=== PATIENT | female | born 1970 | race Caucasian/White ===

== ENCOUNTER 2020-04-23 00:36 | Outpatient (CLI) | payer BC, SELFPAY ==
[2020-04-23 19:18] LABS: SARS-CoV-2 RNA PCR Negative
== END 2020-04-23 00:37 | disposition home or self-care (01) ==
LOC: ANHCOVIDDT 00:36
PROVIDERS: Family Provider Family Medicine; PCP Internal Medicine; Visit Provider Otolaryngology
DX: Z01.812 Encounter for preprocedural laboratory examination (principal); Z20.822 Contact with and (suspected) exposure to COVID-19
CPT/HCPCS: C9803; U0003; U0005

== ENCOUNTER 2020-04-26 01:05 | Day surgery (SDC) | payer BC, SELFPAY ==
[2020-04-22 17:11] VITALS: BMI 28.3
--- NOTE | 2020-04-23 15:49 | PM.IMHP ---
H&P: HPI History of Present Illness Date/Time: 04/23/20 15:49 Chief Complaint: Left eustachian tube dysfunction, COME Narrative: Amber Cordova is a 49 year old female Who presents for planned surgical procedure. She reports no new symptoms and no new pertinent changes in her medical history. Review of Systems Constitutional: Constitutional: Denies fatigue, Denies fever(s) and Denies lethargy Eyes: Eyes: Denies blurry vision and Denies change in vision ENT: Reports as per HPI Cardiovascular: Cardiovascular: Denies chest pain Respiratory: Respiratory: Denies cough Endocrine: Endocrine: Denies fatigue Hematologic/Lymphatic: Hematologic/Lymphatic: Denies easy bleeding, Denies easy bruising and Denies lymphadenopathy Allergic/Immunologic: Allergic/Immunologic: Denies seasonal rhinorrhea [facility] Family History Family History (Updated 11/16/13 @ 07:13 by DOCTOR UNKNOWN) Grandparent Cerebrovascular accident Father Family history of heart disease in male family member before age 55 Social History Social History (Updated 03/26/20 @ 15:33 by Ellen Cooney [facility]) Smoking packs per day: 1 Smoking cigarettes per day: 20.0 Years smoked: 20 Smoking pack-years: 20.00 Smoking status: Former smoker Tobacco type: cigarettes Smoking end date: 04/22/04 Alcohol intake: current Drinks per week: 2 Substance use: never Substance use type: does not use Spiritual care concerns: No Meds Home Medications and Allergies Home Medications Medication Instructions Recorded Confirmed Type cholecalciferol (vitamin D3) 10 100 mcg PO DAILY 03/26/20 04/22/20 History mcg (400 unit) capsule fluticasone propionate 50 1 - 2 spray INTRANASAL BID #15.8 ml 03/26/20 04/22/20 Rx mcg/actuation nasal spray,suspension diphenhydramine-acetaminophen 2 tablet PO HS PRN 04/22/20 04/22/20 History [Tylenol PM Extra Strength] lubiprostone [Amitiza] 24 mcg PO DAILY 04/22/20 04/22/20 History mupirocin 1 applic TOPICAL BID PRN 04/22/20 04/22/20 History azelastine 137 mcg (0.1 %) nasal 1 spray INTRANASAL Q12H #30 ml 04/23/20 Rx spray aerosol Allergies Allergy/AdvReac Type Severity Reaction Status Date / Time morphine AdvReac Nausea and Verified 04/22/20 17:40 Vomiting Exam Const: General: cooperative, healthy appearing, comfortable, well developed and alert HENMT: Head: normal to inspection, normocephalic and atraumatic Ears: hearing grossly normal bilaterally, external ears normal, TM normal on the right, left TM abnormal ( Middle ear effusion present) and EAC's normal General nose exam: Normal external nose present, Normal nares present, No nasal polyps present, Normal nasal mucous membranes and turbinates present and Normal septum present Face and sinus: normal facial exam Mouth: Yes Normal oral and palatal mucosa present, Yes lip normal, Yes tongue normal, Yes oropharynx normal and Yes moist mucous membranes Teeth and gingiva: dentition normal and gingiva normal Throat: posterior oropharynx normal, tonsils normal and uvula midline Eyes: General: appearance normal, both eyes and all related structures Periorbital: periorbital findings normal Eyelids: eyelids normal Conjunctivae: conjunctivae normal Sclera: sclerae normal Neck: Neck: normal visual inspection, full ROM and no lymphadenopathy Thyroid: thyroid normal Lymphatic: no lymphadenopathy noted Resp: Effort & Inspection: normal respiratory effort and able to speak in complete sentences Cardio: Jugular venous distension: no JVD Neuro: Cranial nerves: Yes CN's II-XII intact bilaterally Assessment and Plan Assessment and plan (1) Dysfunction of left eustachian tube: Code(s): H69.82 - Other specified disorders of Eustachian tube, left ear Status: Acute Assessment and Plan: Plan is for the OR for left-sided myringotomy with T-tube insertion. The risks were discussed in great detail including bleedi
--- NOTE | 2020-04-25 16:26 | WPDANESEPPF ---
Anes - Initial Pre Proc Eval Procedure: Operation Date: 04/26/20 08:15 Proposed Procedures p Left Myringotomy With Insertion of Tube - Pj Floyd MD Date/Time: 04/25/20 16:26 Surgeon: Pj Floyd MD Pre Op Diagnosis: Left chronic otitis media Patient Data Age: 49 Gender: F Height: 1.7 m Weight: 82.1 kg Allergies Allergy/AdvReac Type Severity Reaction Status Date / Time morphine AdvReac Nausea and Verified 04/26/20 06:40 Vomiting Home Medications Medication Instructions Recorded Confirmed Type cholecalciferol (vitamin D3) 10 100 mcg PO DAILY 03/26/20 04/26/20 History mcg (400 unit) capsule fluticasone propionate 50 1 - 2 spray INTRANASAL BID #15.8 ml 03/26/20 04/26/20 Rx mcg/actuation nasal spray,suspension diphenhydramine-acetaminophen 2 tablet PO HS PRN 04/22/20 04/26/20 History [Tylenol PM Extra Strength] lubiprostone [Amitiza] 24 mcg PO DAILY 04/22/20 04/26/20 History mupirocin 1 applic TOPICAL BID PRN 04/22/20 04/26/20 History azelastine 137 mcg (0.1 %) nasal 1 spray INTRANASAL Q12H #30 ml 04/23/20 Rx spray aerosol Patient hx anesthesia problems: none Family hx anesthesia problems: none PMFSH Past Medical History Medical History (Updated 04/25/20 @ 16:27 by Derek Acuna MD) Dysfunction of left eustachian tube Overweight (BMI 25.0-29.9) Family History Family History (Updated 11/16/13 @ 07:13 by DOCTOR UNKNOWN) Grandparent Cerebrovascular accident Father Family history of heart disease in male family member before age 55 Social History Social History (Updated 03/26/20 @ 15:33 by Ellen Cooney CMA) Smoking packs per day: 1 Smoking cigarettes per day: 20.0 Years smoked: 20 Smoking pack-years: 20.00 Smoking status: Former smoker Tobacco type: cigarettes Smoking end date: 04/22/04 Alcohol intake: current Drinks per week: 2 Alcohol use details: occasionally drink on the weekends Substance use: never Substance use type: does not use Living arrangements: with family Spiritual care concerns: No Anes - Eval Final PreProcedure Day of Procedure 04/25/20 16:26 Patient weight: overweight Heart: regular rate and rhythm Lungs: clear to auscultation and normal air movement Airway: Mallampati scale class II Neurological: alert and oriented Last oral intake: >/= 8 hours ASA classification: II Emergent: no Anesthetic plan: proceed Anesthesia type and monitoring: general GIVS and LMA Informed Consent: The patient's anesthetic plan and its attendant risks and benefits were discussed with the patient/family/POA. Questions were solicited and answers provided to the satisfaction of the patient/family/POA.
[2020-04-26 06:39] VITALS: BMI 28.6
[2020-04-26] MEDS: ACETAMINOPHEN 500 MG TABLET 1000 MG PO (06:54)
[2020-04-26 06:57] VITALS: BP 100/85; PULSE 49; RESP 16; TEMP 36.9; O2SAT 100
--- NOTE | 2020-04-26 06:59 | WPDHPUPDATE1 ---
History and Physical Update Update Date/Time: 04/26/20 06:59 History and Physical has been reviewed, including an updated exam of the patient. There are NO changes in the patient's condition. Risks, benefits, and alternatives have been discussed and questions answered. Patient agrees to proceed with procedure.
--- NOTE | 2020-04-26 07:07 | WPDANESEPP ---
Anes - Eval Pre Procedure Procedure: Operation Date: 04/26/20 08:15 Proposed Procedures p Left Myringotomy With Insertion of Tube - Pj Floyd MD Date/Time: 04/26/20 07:07 Surgeon: Pj Floyd M.D. Pre Op Diagnosis: Left chronic otitis media Patient Data Age: 49 Gender: F Height: 1.7 m Weight: 83 kg Last Vital Signs Temp 36.9 C 04/26/20 06:57 Pulse 49 L 04/26/20 06:57 Resp 16 04/26/20 06:57 BP 100/85 04/26/20 06:57 Pulse Ox 100 04/26/20 06:57 Allergies Allergy/AdvReac Type Severity Reaction Status Date / Time morphine AdvReac Nausea and Verified 04/26/20 06:40 Vomiting Home Medications Medication Instructions Recorded Confirmed Type cholecalciferol (vitamin D3) 10 100 mcg PO DAILY 03/26/20 04/26/20 History mcg (400 unit) capsule fluticasone propionate 50 1 - 2 spray INTRANASAL BID #15.8 ml 03/26/20 04/26/20 Rx mcg/actuation nasal spray,suspension diphenhydramine-acetaminophen 2 tablet PO HS PRN 04/22/20 04/26/20 History [Tylenol PM Extra Strength] lubiprostone [Amitiza] 24 mcg PO DAILY 04/22/20 04/26/20 History mupirocin 1 applic TOPICAL BID PRN 04/22/20 04/26/20 History azelastine 137 mcg (0.1 %) nasal 1 spray INTRANASAL Q12H #30 ml 04/23/20 Rx spray aerosol Patient hx anesthesia problems: none Family hx anesthesia problems: none [facility] Past Medical History Medical History (Updated 04/26/20 @ 07:09 by Jim Burdick CRNA) Alcohol use Dysfunction of left eustachian tube Ear drainage Fibroids Overweight (BMI 25.0-29.9) Psoriasis Smoking history Umbilical hernia Vaginal bleeding Surgical History Surgical History (Updated 04/26/20 @ 07:09 by Jim Burdick CRNA) H/O tubal ligation History of inguinal hernia repair History of tonsillectomy Family History Family History (Updated 11/16/13 @ 07:13 by DOCTOR UNKNOWN) Grandparent Cerebrovascular accident Father Family history of heart disease in male family member before age 55 Social History Social History (Updated 03/26/20 @ 15:33 by Ellen Cooney [facility]) Smoking packs per day: 1 Smoking cigarettes per day: 20.0 Years smoked: 20 Smoking pack-years: 20.00 Smoking status: Former smoker Tobacco type: cigarettes Smoking end date: 04/22/04 Alcohol intake: current Drinks per week: 2 Alcohol use details: occasionally drink on the weekends Substance use: never Substance use type: does not use Living arrangements: with family Spiritual care concerns: No Exam Day of Procedure 04/26/20 07:07
[2020-04-26] MEDS: LACTATED RINGERS 1,000 ML 30 ML IV CONT (07:39)
[2020-04-26] MEDS: CIPROFLOXACIN HCL 0.3% OP SOLN 2.5 ML BTL 4 DROP EACH EAR (07:44)
[2020-04-26 08:03] VITALS: BP 101/61; PULSE 43; RESP 8; TEMP 36.3; O2SAT 97
--- NOTE | 2020-04-26 08:07 | PM.PROC ---
Procedure Note - Detailed Date of procedure: 04/26/20 Pre-op diagnosis: Left chronic otitis media Same Post-op diagnosis: same Procedure performed: Left myringotomy with T-tube insertion Description of procedure: The patient was correctly identified and consent was verified in the preoperative holding area. The patient was then brought to the operating room and a time-out was performed. General anesthesia was induced and bag mask ventilation was maintained. The microscope was brought to the field on the left ear canal was brought into view. Copious cerumen was removed with a combination of curette as well as alligator forceps. The middle ear appear appeared aerated with minimal retraction noted of the TM. A knife was used to make an incision in the anterior-inferior quadrant and a T-tube was inserted and confirmed in proper placement. Drops were applied. Hemostasis was excellent and there were no complications. I performed all dictated portions of the procedure. Anesthesia: GLMA Surgeon: Pj Floyd MD Complications: No immediate complications Condition: stable Disposition: PACU
[2020-04-26 08:15] VITALS: BP 104/66; PULSE 49; RESP 18; O2SAT 96
[2020-04-26 08:30] VITALS: BP 110/73; PULSE 48; RESP 16; O2SAT 94
[2020-04-26 08:36] VITALS: BP 100/58; PULSE 42; RESP 16
[2020-04-26 09:05] VITALS: BP 101/62; PULSE 43; RESP 16
== END 2020-04-26 09:16 | disposition home or self-care (01) ==
PROVIDERS: Family Provider Family Medicine; PCP Internal Medicine; Visit Provider Otolaryngology
PROC: (CPT 69436; principal; 2020-04-26 08:15)
DX: H66.92 Otitis media, unspecified, left ear (principal); Z87.891 Personal history of nicotine dependence
CPT/HCPCS: 69436; A9270; J2405; J2704; J3010; J7120

== ENCOUNTER → 2020-10-08 08:51 | Outpatient (CLI) | payer BC, SELFPAY ==
[2020-10-08 17:52] LABS: SARS-CoV-2 RNA PCR Negative
== END ==
PROVIDERS: PCP Internal Medicine; Visit Provider Internal Medicine Gastroenterology
DX: Z01.812 Encounter for preprocedural laboratory examination (principal); Z20.822 Contact with and (suspected) exposure to COVID-19
CPT/HCPCS: C9803; U0003; U0005

== ENCOUNTER 2020-10-11 01:05 | Day surgery (SDC) | payer BC, SELFPAY ==
[2020-10-01 12:17] VITALS: BMI 25.5
[2020-10-11] MEDS: LACTATED RINGERS 1,000 ML 150 ML IV CONT (06:46)
[2020-10-11 06:52] VITALS: BP 101/61; PULSE 57; RESP 20; TEMP 36.5; O2SAT 98
--- NOTE | 2020-10-11 07:07 | SUR.PREOP ---
Patient has history of endometrial ablation. States she has no had a period since the age of 37. [address] Rich who states that urine test is no longer needed at this time.
--- NOTE | 2020-10-11 07:24 | WPDGICN ---
Assessment and Plan Assessment and plan (1) Encounter for screening colonoscopy: Code(s): Z12.11 - Encounter for screening for malignant neoplasm of colon Status: Acute Assessment and Plan: Patient presents for screening colonoscopy. Further recommendations will be given after endoscopy. Continued use of high-fiber diet advised as she appears to have underlying irritable bowel syndrome. GI Consult Note Consult date/time: 10/11/20 07:24 HPI: Amber Cordova is a 50 year old female Presents for screening colonoscopy. Patient states that her current weight appetite bowel movements are normal. Patient denies abdominal pain. She has had no blood in her stools. In the past she has been told she had irritable bowel syndrome. She typically will take laxatives to help with tendency towards constipation. Family history is noncontributory. Review of Systems Review of Systems: All systems reviewed & are unremarkable except as noted in HPI and below PMFSH Past Medical History Medical History (Updated 10/11/20 @ 07:26 by Jose Miguel Bauer MD) Alcohol use Dysfunction of left eustachian tube Ear drainage Fibroids Overweight (BMI 25.0-29.9) Psoriasis Smoking history Umbilical hernia Vaginal bleeding Surgical History Surgical History (Updated 04/26/20 @ 07:09 by Jim Burdick CRNA) H/O tubal ligation History of inguinal hernia repair History of tonsillectomy Family History Family History (Updated 11/16/13 @ 07:13 by DOCTOR UNKNOWN) Grandparent Cerebrovascular accident Father Family history of heart disease in male family member before age 55 Social History Social History (Updated 03/26/20 @ 15:33 by Ellen Cooney [facility]) Smoking packs per day: 1 Smoking cigarettes per day: 20.0 Years smoked: 20 Smoking pack-years: 20.00 Smoking status: Former smoker Tobacco type: cigarettes Smoking end date: 04/22/04 Alcohol intake: current Drinks per week: 2 Alcohol use details: socially Substance use: never Substance use type: does not use Living arrangements: with family Spiritual care concerns: No Meds Home Medications and Allergies Home Medications Medication Instructions Recorded Confirmed Type cholecalciferol (vitamin D3) 10 100 mcg PO DAILY 03/26/20 10/01/20 History mcg (400 unit) capsule fluticasone propionate 50 1 - 2 spray INTRANASAL BID #15.8 ml 03/26/20 10/01/20 Rx mcg/actuation nasal spray,suspension diphenhydramine-acetaminophen 2 tablet PO HS PRN 04/22/20 10/01/20 History [Tylenol PM Extra Strength] linaclotide [Linzess] 145 mcg PO DAILY 10/01/20 10/01/20 History Allergies Allergy/AdvReac Type Severity Reaction Status Date / Time morphine AdvReac Nausea and Verified 10/11/20 06:49 Vomiting Vital Signs Vital Signs - 24 hr 10/11/20 06:52 Temperature 97.7 F Pulse Rate 57 L Respiratory Rate 20 Blood Pressure 101/61 Pulse Oximetry 98 Exam Narrative: Exam Narrative: Physical exam reveals patient be alert. Vital signs stable. HEENT exam is unremarkable. Patient is anicteric. Lungs are clear to auscultation and percussion. Heart is without murmur or extra sounds. Abdominal exam bowel sounds are present soft nontender with no organomegaly. Digital external rectal exam is normal.
--- NOTE | 2020-10-11 07:51 | WPDANESEPPF ---
Anes - Initial Pre Proc Eval Procedure: Operation Date: 10/11/20 08:00 Proposed Procedures p Colonoscopy - Jose Miguel Bauer MD Date/Time: 10/11/20 07:51 Surgeon: Jose Miguel Bauer MD Pre Op Diagnosis: neoplasm screening Patient Data Age: 50 Gender: F Height: 1.7 m Weight: 72.2 kg Last Vital Signs Temp 97.7 F 10/11/20 06:52 Pulse 57 L 10/11/20 06:52 Resp 20 10/11/20 06:52 BP 101/61 10/11/20 06:52 Pulse Ox 98 10/11/20 06:52 Allergies Allergy/AdvReac Type Severity Reaction Status Date / Time morphine AdvReac Nausea and Verified 10/11/20 06:49 Vomiting Home Medications Medication Instructions Recorded Confirmed Type cholecalciferol (vitamin D3) 10 100 mcg PO DAILY 03/26/20 10/01/20 History mcg (400 unit) capsule fluticasone propionate 50 1 - 2 spray INTRANASAL BID #15.8 ml 03/26/20 10/01/20 Rx mcg/actuation nasal spray,suspension diphenhydramine-acetaminophen 2 tablet PO HS PRN 04/22/20 10/01/20 History [Tylenol PM Extra Strength] linaclotide [Linzess] 145 mcg PO DAILY 10/01/20 10/01/20 History Patient hx anesthesia problems: none Family hx anesthesia problems: none PMFSH Past Medical History Medical History (Updated 10/11/20 @ 07:26 by Jose Miguel Bauer MD) Alcohol use Dysfunction of left eustachian tube Ear drainage Fibroids Overweight (BMI 25.0-29.9) Psoriasis Smoking history Umbilical hernia Vaginal bleeding Surgical History Surgical History (Updated 04/26/20 @ 07:09 by Jim Burdick CRNA) H/O tubal ligation History of inguinal hernia repair History of tonsillectomy Family History Family History (Updated 11/16/13 @ 07:13 by DOCTOR UNKNOWN) Grandparent Cerebrovascular accident Father Family history of heart disease in male family member before age 55 Social History Social History (Updated 03/26/20 @ 15:33 by Ellen Cooney [facility]) Smoking packs per day: 1 Smoking cigarettes per day: 20.0 Years smoked: 20 Smoking pack-years: 20.00 Smoking status: Former smoker Tobacco type: cigarettes Smoking end date: 04/22/04 Alcohol intake: current Drinks per week: 2 Alcohol use details: socially Substance use: never Substance use type: does not use Living arrangements: with family Spiritual care concerns: No Anes - Eval Final PreProcedure Day of Procedure 10/11/20 07:51 Patient weight: normal Heart: regular rate and rhythm Lungs: clear to auscultation Airway: Mallampati scale Neurological: alert and oriented Last oral intake: >/= 8 hours ASA classification: II Emergent: no Anesthetic plan: proceed Anesthesia type and monitoring: general GIVS and standard monitoring Informed Consent: The patient's anesthetic plan and its attendant risks and benefits were discussed with the patient/family/POA. Questions were solicited and answers provided to the satisfaction of the patient/family/POA.
[2020-10-11 08:18] VITALS: BP 92/54; PULSE 48; RESP 17; O2SAT 97
[2020-10-11 08:28] VITALS: BP 92/61; PULSE 44; RESP 15; O2SAT 97
[2020-10-11 08:38] VITALS: BP 104/72; PULSE 49; RESP 19; O2SAT 97
== END 2020-10-11 08:50 | disposition home or self-care (01) ==
PROVIDERS: PCP Internal Medicine; Visit Provider Internal Medicine Gastroenterology
PROC: 0DJD8ZZ Inspection of Lower Intestinal Tract, Via Natural or Artificial Opening Endoscopic (ICD-10-PCS; CPT 45378; principal; 2020-10-11 08:00)
DX: Z12.11 Encounter for screening for malignant neoplasm of colon (principal); L40.9 Psoriasis, unspecified; K42.9 Umbilical hernia without obstruction or gangrene; Z87.891 Personal history of nicotine dependence
CPT/HCPCS: 45378; J2704; J7120